=== PATIENT | female | born 1970 | race Caucasian/White ===

== ENCOUNTER → 2018-03-20 | Day surgery (SDC) | payer OTHER ==
[~2018-03-20] VITALS: Ht 172.7 cm; Wt 81.6 kg
[~2018-03-20] MED LIST: IRON325 M3 PO; LEVOXYL150 MCG PO; VITAMIN D2000 UNIT PO
--- NOTE | 2018-03-20 17:19 | Operative Report ---
Operative/Inv Procedure Report Surgery Date: 03/20/18 Name of Procedure: Hysteroscopic polypectomy with the Myosure device and endometrial ablation with the NovaSure Pre-Operative Diagnosis: Endometrial polyp and menometrorrhagia Post-Operative Diagnosis: Same, pathology pending Estimated Blood Loss: less than 50ml Surgeon/Crane Manager: John Fuller MD Anesthesia: local monitored anesthesi Specimens: Endometrial polyp and endometrial curettings Complications: None Condition: Stable Operative/Procedure Note Note: The patient was taken to the operating room and placed in dorsal supine position. Anesthesia was obtained without difficulty. The patient was then placed in dorsal lithotomy position and prepped and draped in the usual sterile fashion. A sterile speculum was then placed in the patient's vagina. A single- tooth tenaculum was applied to the anterior lip of the cervix. The cervix was serially dilated to accommodate the Myosure hysteroscope. The hysteroscope was then inserted and survey of the uterine cavity revealed a small approximately 1 cm endometrial polyp on the right side of the lower uterine segment extending into the cervical canal. The mild Essure device was then used to resect the endometrial polyp. The tissue was sent to pathology. The remainder of the uterine cavity appeared normal. The hysteroscope was then removed from the patient's uterus. The NovaSure sound was then used to measure the uterine cavity. The NovaSure device was then inserted into the uterine cavity and the ablation was performed in the usual fashion without difficulty. All instruments were then removed from the patient's vagina. Excellent hemostasis was noted. All counts were reported to be correct 2. The patient was then taken out of dorsal lithotomy position and brought to the recovery room in stable condition. Findings: An approximately 1 cm endometrial polyp on the right side of the lower uterine segment Discharge Disposition: Same Day Admissions
== END ==
LOC: STS 03:41
DX: N84.0 Polyp of corpus uteri (principal); N92.1 Excessive and frequent menstruation with irregular cycle; D64.9 Anemia, unspecified; E03.9 Hypothyroidism, unspecified; Z87.891 Personal history of nicotine dependence
CPT/HCPCS: 81025; J0131; J2250